=== PATIENT | female | born 1990 | race African-American/Black ===

== ENCOUNTER 2018-12-01 13:26 | Observation (INO) | payer OTHER ==
[2018-12-01] MEDS ORDERED: IPRATROPIUM-ALBUTEROL 3 ML NEB INHALATION STA (13:30)
--- NOTE | 2018-12-01 13:42 | ED ---
General Adult HPI - General Chief complaint: Overdose Stated complaint: Overdose Time Seen by Provider: 12/01/18 13:29 Source: patient, EMS, RN notes reviewed Mode of arrival: EMS Limitations: altered mental status - History of Present Illness Initial comments: Patient is a 28-year-old female presenting to the emergency department by EMS. Patient was checking into [place] for rehab when she was found to be unresponsive. Patient was given 7mg Narcan prior to arrival. Patient remains drowsy however is able to answer questions. Patient admits to snorting heroin. Patient denies any other drug ingestion. No suicidal thoughts. Patient feels somewhat nauseated however no other physical complaints. He should denies any trauma - Related Data Allergies Allergy/AdvReac Type Severity Reaction Status Date / Time Penicillins Allergy Unknown Verified 12/01/18 13:40 Review of Systems ROS Statement: Those systems with pertinent positive or pertinent negative responses have been documented in the HPI. ROS Other: All systems not noted in ROS Statement are negative. Constitutional: Denies: fever Eyes: Denies: eye pain ENT: Denies: ear pain Respiratory: Denies: cough Cardiovascular: Denies: chest pain Endocrine: Denies: fatigue Gastrointestinal: Reports: nausea. Denies: abdominal pain Genitourinary: Denies: dysuria Musculoskeletal: Denies: back pain Skin: Denies: rash Neurological: Denies: weakness Past Medical History Past Medical History: Asthma Additional Past Medical History / Comment(s): lupus History of Any Multi-Drug Resistant Organisms: None Reported Past Surgical History: No Surgical Hx Reported Past Psychological History: No Psychological Hx Reported Smoking Status: Never smoker Past Alcohol Use History: None Reported Past Drug Use History: Opiates General Exam Limitations: no limitations General appearance: other (Drowsy) Head exam: Present: atraumatic Eye exam: Present: normal appearance ENT exam: Present: normal oropharynx Neck exam: Present: normal inspection Respiratory exam: Present: wheezes Cardiovascular Exam: Present: tachycardia GI/Abdominal exam: Present: soft. Absent: tenderness Extremities exam: Present: normal inspection Neurological exam: Present: oriented X3, other (Drowsy. Does follow simple commands and is oriented). Absent: motor sensory deficit Expanded Neurological exam: Present: protecting the airway Patient oriented to: Present: person, place, time Cranial nerves: EOM's Intact: Normal Motor strength exam: RUE: 5, LUE: 5, RLE: 5, LLE: 5 Eye Response: (4) open spontaneously Motor Response: (6) obeys commands Verbal Response: (5) oriented Psychiatric exam: Present: normal affect, normal mood Skin exam: Present: normal color Course Vital Signs 12/01/18 12/01/18 12/01/18 13:29 13:44 13:55 Temperature 97.4 F L Pulse Rate 137 H 140 H 131 H Respiratory 22 Rate Blood Pressure 127/91 O2 Sat by Pulse 91 L Oximetry 12/01/18 14:13 Temperature Pulse Rate Respiratory 36 H Rate Blood Pressure O2 Sat by Pulse Oximetry EKG Findings - EKG Comments: EKG Findings:: Sinus tachycardia 1:30. DC 144. QRS 82. QT 308. QTC 453. Normal axis. Normal QRS. No acute ST change. Medical Decision Making - Medical Decision Making Patient reevaluated. Patient is on Narcan drip. Mental status unchanged. There is concern for possible aspiration and patient will be covered with antibiotics. Blood cultures and lactic acid have been ordered. Patient is not felt to meet sepsis criteria at this time. Vital sign abnormality is felt to be related to opiate withdrawal. Case was discussed in detail with Dr. Saldivar, covering for hospital call, who will admit. - Lab Data Result diagrams: 12/01/18 13:46 12/01/18 13:46 Lab Results 12/01/18 12/01/18 Range/Units 13:46 13:46 WBC 11.9 H (3.8-10.6) k/uL RBC 4.39 (3.80-5.40) m/uL Hgb 11.1 L (11.4-16.0) gm/dL Hct 34.8 (34.0-46.0) % MCV 79.4 L (80.0-100.0) fL MCH 25.4 (25.0-35.0) pg MCHC 32.0 (31.0-37.0) g/dL RDW 14.9 (11.5-15.5) % Plt Count 305 (150-450) k/uL Neutrophils % 80 % Lymphocytes % 14 % Monocytes % 3 % Eosinophils % 2 % Basophils % 0 % Neutrophils # 9.5 H (1.3-7.7) k/uL Lymphocytes # 1.7 (1.0-4.8) k/uL Monocytes # 0.4 (0-1.0) k/uL Eosinophils # 0.2 (0-0.7) k/uL Basophils # 0.0 (0-0.2) k/uL Hypochromasia Slight Sodium 141 (137-145) mmol/L Potassium 5.2 H (3.5-5.1) mmol/L Chloride 111 H (98-107) mmol/L Carbon Dioxide 22 (22-30) mmol/L Anion Gap 8 mmol/L BUN 12 (7-17) mg/dL Creatinine 1.07 H (0.52-1.04) mg/dL Est GFR (CKD-EPI)AfAm 82 (>60 ml/min/1.73 sqM) Est GFR (CKD-EPI)NonAf 71 (>60 ml/min/1.73 sqM) Glucose 233 H (74-99) mg/dL Calcium 8.7 (8.4-10.2) mg/dL Total Bilirubin 0.4 (0.2-1.3) mg/dL AST 28 (14-36) U/L ALT 32 (9-52) U/L Alkaline Phosphatase 61 (38-126) U/L Total Protein 6.8 (6.3-8.2) g/dL Albumin 3.7 (3.5-5.0) g/dL Salicylates <1.0 mg/dL Acetaminophen <10.0 ug/mL Serum Alcohol <10 mg/dL - Radiology Data Radiology results: image reviewed (Chest x-ray shows mild right upper lobe infiltrate) Critical Care Time Critical Care Time: Yes Total Critical Care Time: 33 Disposition Clinical Impression: Drug overdose Disposition: ADMITTED IP TO THIS [facility] Condition: Serious Is patient prescribed a controlled substance at d/c from ED?: No Referrals: None,Stated [Primary Care Provider] - 1-2 days Decision Time: 14:35
[2018-12-01] MEDS: NALOXONE 2 MG in SODIUM CHLORIDE 0.9% 250 ML IV SCH ×3 (14:13→22:46)
[2018-12-01 14:16] LABS: Basophils % (A) 0 %; Eosinophils # (A) 0.2 k/uL (0-0.7); Eosinophils % (A) 2 %; HCT 34.8 % (34.0-46.0); HGB 11.1 gm/dL (11.4-16.0); Hypochromasia Slight; Lymphocytes # (A) 1.7 k/uL (1.0-4.8); Lymphocytes % (A) 14 %; MCH 25.4 pg (25.0-35.0); MCV 79.4 fL (80.0-100.0); Mean Platelet Volume 6.5; Monocytes # (A) 0.4 k/uL (0-1.0); Monocytes % (A) 3 %; Neutrophils # (A) 9.5 k/uL (1.3-7.7); Neutrophils % (A) 80 %; Platelet Count 305 k/uL (150-450); RBC 4.39 m/uL (3.80-5.40); RDW 14.9 % (11.5-15.5); WBC 11.9 k/uL (3.8-10.6)
--- NOTE | 2018-12-01 14:18 | XR ---
EXAMINATION TYPE: XR chest 1V portable DATE OF EXAM: 12/01/2018 COMPARISON: None INDICATION: Dyspnea TECHNIQUE: Single frontal view of the chest is obtained. FINDINGS: The heart size is normal. The pulmonary vasculature is normal. Some mild right upper lobe infiltrate may be present. Correlate for atelectasis or pneumonia. IMPRESSION: 1. Mild right upper lobe infiltrate. Correlate for atelectasis or pneumonia.
[2018-12-01 14:30] LABS: ALT 32 U/L (9-52); AST 28 U/L (14-36); Acetaminophen <10.0 ug/mL; Albumin 3.7 g/dL (3.5-5.0); Alcohol <10 mg/dL; Alkaline Phosphatase 61 U/L (38-126); Anion Gap 8 mmol/L; Blood Urea Nitrogen 12 mg/dL (7-17); Calcium 8.7 mg/dL (8.4-10.2); Carbon Dioxide 22 mmol/L (22-30); Chloride 111 mmol/L (98-107); Glucose 233 mg/dL (74-99); Potassium 5.2 mmol/L (3.5-5.1); Salicylate <1.0 mg/dL; Sodium 141 mmol/L (137-145); Total Bilirubin 0.4 mg/dL (0.2-1.3); Total Protein 6.8 g/dL (6.3-8.2)
[2018-12-01] MEDS ORDERED: LEVOFLOXACIN 750MG-D5W PMX 750 MG in DEXTROSE/WATER 1 150ML.BAG IVPB STA (14:35)
[2018-12-01] MEDS ORDERED: IPRATROPIUM-ALBUTEROL 3 ML NEB INHALATION PRN (14:35)
[2018-12-01] MEDS ORDERED: PNEUMONIA PROTOCOL UTILIZED 1 EACH MISC PO PRN (14:35)
[2018-12-01] MEDS: SODIUM CHLORIDE 0.9% 1,000 ML IV SCH (15:37)
[2018-12-01] MEDS: IPRATROPIUM-ALBUTEROL 3 ML NEB INHALATION SCH ×2 (15:39→20:21)
[2018-12-01] MEDS ORDERED: CLINDAMYCIN 600 MG in DEXTROSE 5% IN WATER 50 ML IVPB SCH ×2 (16:00)
[2018-12-01 16:18] LABS: Glucose,Whole Blood 170 mg/dL (75-99)
[2018-12-01] MEDS ORDERED: diphenhydrAMINE 25 MG CAP PO PRN (16:34)
--- NOTE | 2018-12-01 17:13 | P.CNPUL ---
History of Present Illness Consult date: 12/01/18 Reason for consult: other Chief complaint: Heroin overdose History of present illness: This is a 28-year-old female patient with past medical history of multiple sclerosis, lupus, anxiety, who was brought into the hospital. EMS on 12/01/2018 from [facility]. She was checking in to [facility] for rehab, he was found unresponsive. Opiate overdose was suspected, and patient was given intranasal Narcan as well as IV Narcan, a total of 7 mg prior to arrival to the hospital. Patient started waking up, though was still drowsy on arrival, she was started on Narcan drip. She reportedly admitted snorting heroin in the emergency department. She denied any suicidal thoughts. Chest x-ray was taken and showed mild right upper lobe infiltrate, that could relate to atelectasis or early pneumonia. She was started on clindamycin and Levaquin, white blood cell count was 11.9, hemoglobin was 11.1, sodium was 141, potassium is 5.2, chloride was 111, BUN was 12 creatinine was 1.07, LFTs were within normal limits, salicylate level less than 1, acetaminophen level less than 10, serum alcohol level less than 10. Patient is tachycardic, sinus mechanism with a rate of 130 BPM. She is currently being evaluated in the intensive care unit, she is awake and alert, remains on Narcan drip. She denies snorting heroin. He states someone that was going to the [facility] with her and offered her a pill, told her it was clonazepam, she ingested it. She denies any illegal drug use, she states she was going to the rehab because she was told to wean herself off the Olga was that she was taking for her left ankle injury. Her left ankle injury was sustained in a fall, it is bruised and swollen. It is unclear whether she was seen for this injury. Denies any history of smoking, denies any history of EtOH. She states she is on Neurontin 300 mg twice daily, she takes Ativan 2 mg by mouth twice daily, Haldol 5 mg daily, trazodone 200 mg at bedtime for sleep aid, and Olga 5 mg 3-4 times a day for pain control. Patient lives in [place] , usually goes to [facility] for her care. Upon evaluation she is awake and alert, she is fairly pleasant and cooperative. She is complaining of some nausea, but she is trying to eat some chips. She is tachycardic, and sinus tach with a rate of 130, any discomfort other than the left ankle discomfort. Her pupils are pinpoint, patient is salivating, and she is having clear rhinorrhea out of her nose. Lung sounds are clear. Review of Systems All systems: negative Constitutional: Denies chills, Denies fever Eyes: denies blurred vision, denies pain Ears, nose, mouth and throat: Denies headache, Denies sore throat Cardiovascular: Denies chest pain, Denies shortness of breath Respiratory: Denies cough Gastrointestinal: Denies abdominal pain, Denies diarrhea, Denies nausea, Denies vomiting Genitourinary: Denies dysuria, Denies hematuria Musculoskeletal: Reports frequent falls, Denies myalgias Musculoskeletal: left: ankle pain, ankle swelling Integumentary: Denies pruritus, Denies rash Neurological: Reports balance difficulties, Reports gait dysfunction, Denies numbness, Denies weakness Psychiatric: Denies anxiety, Denies depression Endocrine: Denies fatigue, Denies weight change Past Medical History Past Medical History: Asthma Additional Past Medical History / Comment(s): lupus History of Any Multi-Drug Resistant Organisms: None Reported Past Surgical History: No Surgical Hx Reported Past Psychological History: No Psychological Hx Reported Smoking Status: Never smoker Past Alcohol Use History: None Reported Past Drug Use History: Opiates Medications and Allergies Allergies Allergy/AdvReac Type Severity Reaction Status Date / Time Penicillins Allergy Unknown Verified 12/01/18 13:40 Physical Exam Vitals: Vital Signs Temp Pulse Resp BP Pulse Ox 12/01/18 15:30 114 H 22 132/90 98 12/01/18 15:00 121 H 24 127/64 98 12/01/18 14:30 128 H 30 H 128/20 96 12/01/18 14:13 36 H 12/01/18 14:00 132 H 36 H 127/86 94 L 12/01/18 13:55 131 H 12/01/18 13:44 140 H 12/01/18 13:29 97.4 F L 137 H 22 127/91 91 L Intake and Output 12/01/18 12/01/18 12/01/18 06:59 14:59 22:59 Other: Weight 85.729 kg GENERAL EXAM: Alert, pleasant, 28-year-old obese Russian Russian female, sitting up in bed, alert and oriented 3, pleasant, cooperative comfortable in no apparent distress. HEAD: Normocephalic/atraumatic. EYES: Normal reaction of pupils, equal size. Conjunctiva pink, sclera white. NOSE: Clear with pink turbinates. Clear rhinorrhea noted out of both nostrils THROAT: No erythema or exudates. NECK: No masses, no JVD, no thyroid enlargement, no adenopathy. CHEST: No chest wall deformity. Symmetrical expansion. LUNGS: Equal air entry with no crackles, wheeze, rhonchi or dullness. CVS: Regular rate and rhythm, normal S1 and S2, no gallops, no murmurs, no rubs ABDOMEN: Soft, nontender. No hepatosplenomegaly, normal bowel sounds, no guarding or rigidity. EXTREMITIES: No clubbing, no edema, no cyanosis, 2+ pulses and upper and lower extremities. MUSCULOSKELETAL: Muscle strength and tone normal. Left ankle swelling and bruising SPINE: No scoliosis or deformity SKIN: No rashes CENTRAL NERVOUS SYSTEM: Alert and oriented -3. No focal deficits, tone is normal in all 4 extremities. PSYCHIATRIC: Alert and oriented -3. Appropriate affect. Intact judgment and insight. Results - Laboratory Findings CBC and BMP: 12/01/18 13:46 12/01/18 13:46 Abnormal lab findings: Abnormal Labs 12/01/18 12/01/18 13:46 13:46 WBC 11.9 H Hgb 11.1 L MCV 79.4 L Neutrophils # 9.5 H Potassium 5.2 H Chloride 111 H Creatinine 1.07 H Glucose 233 H - Diagnostic Findings Chest x-ray: report reviewed, image reviewed Additional studies: EKG reviewed Assessment and Plan Plan: Assessment: #1. Acute heroin overdose, drug screen is pending, patient admittedly snorted heroin found unresponsive. Narcan was administered at the scene, and en route to the hospital, patient was started on not can drip with subsequent improvement of mentation #2. Acute hypoxic respiratory failure, and chest x-ray showed mild upper lobe infiltrate, atelectasis suspected, with the possibility of aspiration #3. History of prescription abuse, Olga, and patient was being checked into [facility] facility #4. No history of smoking, no history of alcohol #5. History of multiple sclerosis, and patient verbalizes balance issues and frequent falls #6. Left ankle injury sustained in the fall a few days ago at home #7. Lupus erythematosus #8. Anxiety #9. Insomnia #10. Tachycardia Plan: We'll continue with IV fluids at a rate of 75 ML per hour, patient is now awake and alert, conversing, she denies snorting heroin, she states did take clonazepam given to her by another patient at the rehab facility. We will obtain urine drug screen. Will stop Narcan drip. Patient denies any shortness of breath, no cough or congestion, lung sounds are clear, chest x-ray showed mild right upper lobe infiltrate, likely related to atelectasis, with the possibility of aspiration, patient is covered with a combination of clindamycin and Levaquin. Patient is on nebulized bronchodilators, she is on GI and DVT prophylaxis, will restart her home meds, including Olga for pain control, will obtain the x-ray of the left ankle to rule out fracture. Will obtain repeat chest x-ray in the morning. She remains tachycardic, but not hypotensive, she is maintaining good O2 saturations, currently is on supplemental oxygen. We'll continue to follow I performed a history & physical examination of the patient and discussed their management with my nurse practitioner, Anna Grace. I reviewed the nurse practitioner's note and agree with the documented findings and plan of care. Lung sounds are positive for clear breath sounds. The findings and the impression was discussed with the patient. I attest to the documentation by the nurse practitioner. Time with Patient: Greater than 30
[2018-12-01 17:38] VITALS: BMI 34.5
[2018-12-01] MEDS: HEPARIN SODIUM,PORCINE 5,000 UNIT/ML 1 ML VIAL SQ SCH (17:49)
[2018-12-01] MEDS: predniSONE 20 MG TAB PO SCH (17:50)
[2018-12-01] MEDS: FAMOTIDINE 20 MG TAB PO SCH (17:50)
[2018-12-01] MEDS: LORazepam 1 MG TAB PO PRN (17:50)
[2018-12-01] MEDS: KETOROLAC 30 MG/ML 1 ML VIAL IVP SCH (17:51)
--- NOTE | 2018-12-01 17:57 | P.HPIM ---
History of Present Illness 28-year-old the pleasant female with history of multiple sclerosis lupus and anxiety is admitted with the possibility of opiate overdose(to have drug screen pending at this time. came in the with decreased responsiveness altered mental status which improved with the narcaine IV and Narcan drip. Patient was subsequently admitted to ICU. Presently patient is alert oriented 3 comparing of some pain in the leg area which she has an ankle sprain area patient any fever chills cough. Patient denied any increased weakness and multiple sclerosis patient denied using any IV drugs or heroin , patient says she is going to [facility] because of addiction to prescription opiates. Because of anxiety her friend gave her clonazepam because of which she is confused she says. Patient denied any fever chills, was comparing of cough without any stimulants production chest x-ray suspicious for infiltrate because of which she is believed to have aspiration pneumonia was started on clindamycin and levofloxacin although my clinical suspicion is low in spite of having some leukocytosis. Antibiotics will be discontinued patient is bit tachycardic because of Marcaine and probable opiate withdrawal. Review of Systems REVIEW OF SYSTEMS: CONSTITUTIONAL: No fever, no malaise, no fatigue. HEENT: No recent visual problems or hearing problems. Denied any sore throat. CARDIOVASCULAR: No chest pain, orthopnea, PND, no palpitations, no syncope. PULMONARY: No shortness of breath, no cough, no hemoptysis. GASTROINTESTINAL: No diarrhea, no nausea, no vomiting, no abdominal pain. NEUROLOGICAL: No headaches, no weakness, no numbness. HEMATOLOGICAL: Denies any bleeding or petechiae. GENITOURINARY: Denies any burning micturition, frequency, or urgency. MUSCULOSKELETAL/RHEUMATOLOGICAL: Denies any joint pain, swelling, or any muscle pain. ENDOCRINE: Denies any polyuria or polydipsia. The rest of the 14-point review of systems is negative. Past Medical History Past Medical History: Asthma Additional Past Medical History / Comment(s): lupus, MS History of Any Multi-Drug Resistant Organisms: None Reported Past Surgical History: No Surgical Hx Reported Past Anesthesia/Blood Transfusion Reactions: No Reported Reaction Past Psychological History: No Psychological Hx Reported Smoking Status: Never smoker Past Alcohol Use History: None Reported Past Drug Use History: Opiates - Past Family History Mother Family Medical History: Coronary Artery Disease (CAD) Additional Family Medical History / Comment(s): Alzheimer's (early stages) Medications and Allergies Allergies Allergy/AdvReac Type Severity Reaction Status Date / Time Penicillins Allergy Unknown Verified 12/01/18 13:40 Physical Exam Vitals: Vital Signs Temp Pulse Resp BP Pulse Ox 12/01/18 15:30 114 H 22 132/90 98 12/01/18 15:00 121 H 24 127/64 98 12/01/18 14:30 128 H 30 H 128/20 96 12/01/18 14:13 36 H 12/01/18 14:00 132 H 36 H 127/86 94 L 12/01/18 13:55 131 H 12/01/18 13:44 140 H 12/01/18 13:29 97.4 F L 137 H 22 127/91 91 L Intake and Output 12/01/18 12/01/18 12/01/18 06:59 14:59 22:59 Intake Total 100 Output Total 400 Balance -300 Intake: Intake, IV Titration 100 Amount Levofloxacin 750Mg-D5w 100 Pmx 750 mg In Dextrose/ Water 1 150ml.bag @ 100 mls/hr IVPB Q24H [facility] Rx#: [id number] Output: Urine 400 Other: Weight 85.729 kg PHYSICAL EXAMINATION: GENERAL: The patient is alert and oriented x3, not in any acute distress. Well developed, well nourished. She and is covered up with full sheets and she is complaining of cold HEENT: Pupils are round and equally reacting to light. EOMI. No scleral icterus. No conjunctival pallor. Normocephalic, atraumatic. No pharyngeal erythema. No thyromegaly. CARDIOVASCULAR: S1 and S2 present. No murmurs, rubs, or gallops. PULMONARY: Chest is clear to auscultation, no wheezing or crackles. ABDOMEN: Soft, nontender, nondistended, normoactive bowel sounds. No palpable organomegaly. MUSCULOSKELETAL: No joint swelling or deformity. EXTREMITIES: No cyanosis, clubbing, or pedal edema. NEUROLOGICAL: Gross neurological examination did not reveal any focal deficits. SKIN: No rashes. Results CBC & Chem 7: 12/01/18 13:46 12/01/18 13:46 Labs: Abnormal Lab Results - Last 24 Hours (Table) 12/01/18 12/01/18 12/01/18 Range/Units 13:46 13:46 16:17 WBC 11.9 H (3.8-10.6) k/uL Hgb 11.1 L (11.4-16.0) gm/dL MCV 79.4 L (80.0-100.0) fL Neutrophils # 9.5 H (1.3-7.7) k/uL Potassium 5.2 H (3.5-5.1) mmol/L Chloride 111 H (98-107) mmol/L Creatinine 1.07 H (0.52-1.04) mg/dL Glucose 233 H (74-99) mg/dL POC Glucose (mg/dL) 170 H (75-99) mg/dL Thrombosis Risk Factor Assmnt - Choose All That Apply Any of the Below Risk Factors Present?: Yes Each Factor Represents 1 point: Obesity (BMI >25) Other Risk Factors: No Thrombosis Risk Factor Assessment Total Risk Factor Score: 1 Thrombosis Risk Factor Assessment Level: Low Risk Assessment and Plan Plan: -Possible opiate overdose: Patient is presently awake alert oriented 3 will monitor her in ICU patient is probably having minimal withdrawal from opiates patient is bit tachycardic will treat symptomatically with a beta rylie. -History of multiple sclerosis does not appear to have any exacerbation at this time history of SLE -Anxiety disorder -Tachycardia due to probable opiate withdrawals -Low suspicion for aspiration pneumonia antibiotics will be discontinued - leukocytosis reactive in no clear evidence of any sepsis at this time -Elevated blood glucose will obtain hemoglobin A1c -Mildly elevated potassium etiology is unknown low potassium diet
[2018-12-01 18:04] LABS: Glucose,Whole Blood 314 mg/dL (75-99)
[2018-12-01] MEDS: INSULIN ASPART (NovoLOG) 100 UNIT/ML VIAL SQ SCH ×2 (18:14→20:43)
[2018-12-01] MEDS: ONDANSETRON 4 MG/2 ML VIAL IVP PRN (19:13)
--- NOTE | 2018-12-01 19:28 | XR ---
EXAMINATION TYPE: XR ankle limited LT DATE OF EXAM: 12/01/2018 COMPARISON: NONE HISTORY: Pain and swelling TECHNIQUE: 2 views FINDINGS: There is soft tissue swelling over the lateral malleolus. Ankle mortise is anatomic. I see no fracture. There is a small plantar calcaneal spur. IMPRESSION: Soft tissue swelling. No fracture seen. Normal joint spaces.
[2018-12-01 20:05] LABS: Glucose,Whole Blood 180 mg/dL (75-99)
[2018-12-01] MEDS: HYDROcodone/APAP 5-325MG 1 EACH TAB PO PRN (20:38)
[2018-12-01] MEDS: METOPROLOL TARTRATE 25 MG TAB PO SCH (20:41)
[2018-12-01] MEDS: diphenhydrAMINE 50 MG/ML 1 ML VIAL IVP PRN (20:42)
[2018-12-01] MEDS: HALOPERIDOL 5 MG TAB PO SCH (20:43)
[2018-12-01] MEDS ORDERED: traZODone HCL 100 MG TAB PO SCH (21:00)
[2018-12-02] MEDS: NALOXONE 2 MG in SODIUM CHLORIDE 0.9% 250 ML IV SCH ×4 (00:06→10:29)
[2018-12-02] MEDS: KETOROLAC 30 MG/ML 1 ML VIAL IVP SCH ×3 (00:45→12:29)
[2018-12-02] MEDS: SODIUM CHLORIDE 0.9% 1,000 ML IV SCH ×2 (00:47→13:28)
[2018-12-02] MEDS: HEPARIN SODIUM,PORCINE 5,000 UNIT/ML 1 ML VIAL SQ SCH ×3 (00:47→13:28)
[2018-12-02] MEDS: HYDROcodone/APAP 5-325MG 1 EACH TAB PO PRN ×2 (01:33→08:21)
[2018-12-02] MEDS: ONDANSETRON 4 MG/2 ML VIAL IVP PRN (01:34)
[2018-12-02] MEDS: diphenhydrAMINE 50 MG/ML 1 ML VIAL IVP PRN ×2 (02:13→09:56)
[2018-12-02] MEDS: LORazepam 1 MG TAB PO PRN (06:11)
--- NOTE | 2018-12-02 06:38 | XR ---
EXAMINATION TYPE: XR chest 1V portable DATE OF EXAM: 12/02/2018 CLINICAL HISTORY: Difficulty breathing and abnormal x-ray progress study. TECHNIQUE: Single AP portable semiupright view of the chest is obtained. COMPARISON: Chest x-ray from one day earlier. FINDINGS: Pain right upper lung opacity remains present. There is new right basilar opacity partiall y silhouetting right hemidiaphragm. Increased central markings left lung is again seen. Cardiac silho uette size is upper limits of normal slightly more prominent on current study. No large pleural effus ion or pneumothorax is seen. Osseous structures are intact. IMPRESSION: Persistent right apical acute infiltrate and/or atelectasis. Central left hilar mild maria dolores a and/or infiltrate redemonstrated. New patchy right basilar acute infiltrate and/or atelectasis note d.
[2018-12-02 06:58] LABS: Glucose,Whole Blood 113 mg/dL (75-99)
[2018-12-02] MEDS: INSULIN ASPART (NovoLOG) 100 UNIT/ML VIAL SQ SCH ×2 (07:53→12:05)
[2018-12-02] MEDS: IPRATROPIUM-ALBUTEROL 3 ML NEB INHALATION SCH ×2 (07:55→11:20)
[2018-12-02] MEDS: METOPROLOL TARTRATE 25 MG TAB PO SCH (08:22)
[2018-12-02] MEDS: predniSONE 20 MG TAB PO SCH (08:22)
[2018-12-02] MEDS: FAMOTIDINE 20 MG TAB PO SCH (08:23)
[2018-12-02] MEDS: HALOPERIDOL 5 MG TAB PO SCH (09:56)
[2018-12-02 10:20] VITALS: RESP 16
[2018-12-02 11:24] LABS: Appearance,Urine Cloudy (Clear); Bacteria,Urine Rare /hpf; Bilirubin,Urine Negative (Negative); Blood,Urine Negative (Negative); Color,Urine Yellow; Glucose,Urine (UA) Negative (Negative); Ketones,Urine Negative (Negative); Leukocyte Esterase,Urine Trace (Negative); Mucus,Urine Few /hpf; Nitrite,Urine Negative (Negative); PH, Urine 5.5 (5.0-8.0); Protein,Urine Trace (Negative); RBC,Urine 3 /hpf (0-5); Specific Gravity,Urine 1.023 (1.001-1.035); Squamous Epithelial Cell,Urine 26 /hpf (0-4); Urobilinogen,Urine <2.0 mg/dL (<2.0); WBC,Urine 8 /hpf (0-5)
[2018-12-02 11:45] LABS: Cocaine Screen,Urine Not Detected (NotDetected); Opiate Screen,Urine Detected (NotDetected); Phencyclidine Screen,Urine Not Detected (NotDetected); Urn Cannabinoid Scrn Not Detected (NotDetected)
[2018-12-02 11:46] LABS: Amphetamine Screen,Urine Not Detected (NotDetected); Barbiturate Screen,Urine Not Detected (NotDetected); Benzodiazepines Screen,Urine Detected (NotDetected); Methadone Screen, Urine Detected (NotDetected); Oxycodone Screen, Urine Not Detected (NotDetected); Tricyclic Antidepressant,Urine Not Detected (NotDetected)
[2018-12-02 11:49] LABS: Glucose,Whole Blood 115 mg/dL (75-99)
[2018-12-02] MEDS ORDERED: HYDROcodone/APAP 10-325MG 1 EACH TAB PO PRN (12:04)
[2018-12-02] MEDS ORDERED: HYDROcodone/APAP 5-325MG 1 EACH TAB PO STA (12:05)
[2018-12-02 13:19] VITALS: BP 115/78; PULSE 102; TEMP 97
--- NOTE | 2018-12-02 13:51 | P.PN ---
Subjective Progress Note Date: 12/02/18 On 12/02/2018, the patient is being seen for a follow-up. Very manipulative. Very uncooperative. Alert and awake. No altered mentation. Requesting drugs including IV Benadryl and IV narcotics. No agitation. No confusion. No altered mentation. Unable to collect a urine drug screen as the patient has been healthcare administration intern positive and providing the required samples. Her home medications and resume. The plan is for this patient to go back to [facility]. Objective - Vital Signs Vital signs: Vital Signs Temp 97 F L 12/02/18 12:00 Pulse 102 H 12/02/18 12:00 Resp 16 12/02/18 12:00 BP 115/78 12/02/18 12:00 Pulse Ox 96 12/02/18 13:29 Intake & Output 12/01/18 12/02/18 12/02/18 18:59 06:59 18:59 Intake Total 300 1005 Output Total 800 150 Balance -500 1005 -150 Weight 85.729 kg 72 kg Intake: IV 450 Sodium Chloride 0.9% 1, 450 000 ml @ 75 mls/hr IV . [id number] [facility] Rx#:[id number] Intake, IV Titration 300 75 Amount Clindamycin 600 mg In 50 Dextrose 5% in Water 50 ml @ 54 mls/hr IVPB Q8HR [facility] Rx#:[id number] Levofloxacin 750Mg-D5w 100 Pmx 750 mg In Dextrose/ Water 1 150ml.bag @ 100 mls/hr IVPB Q24H [facility] Rx#: [id number] Naloxone 2 mg In Sodium 150 75 Chloride 0.9% 250 ml @ 0. 6 MG/HR 75 mls/hr IV . Q3H20M [facility] Rx#:[id number] Oral 480 Output: Urine 800 150 Other: # Voids 1 1 # Bowel Movements 1 1 - Exam The patient appeared well nourished and normally developed. Vital signs as documented. Head exam is unremarkable. No scleral icterus or corneal arcus noted. Neck is without jugular venous distension, thyromegaly, or carotid bruits. Carotid upstrokes are brisk bilaterally. Lungs are clear to auscultation and percussion. Cardiac exam reveals the PMI to be normally sized and situated. Rhythm is regular. First and second heart sounds normal. No murmurs, rubs or gallops. Abdominal exam reveals normal bowel sounds, no masses , no organomegaly and no aortic enlargement. Extremities are nonedematous and both femoral and pedal pulses are normal. Neurologically awake and alert and is no focal neurological deficit - Labs CBC & Chem 7: 12/01/18 13:46 12/01/18 13:46 Labs: Abnormal Lab Results - Last 24 Hours (Table) 12/01/18 12/01/18 12/01/18 Range/Units 13:46 13:46 16:17 WBC 11.9 H (3.8-10.6) k/uL Hgb 11.1 L (11.4-16.0) gm/dL MCV 79.4 L (80.0-100.0) fL Neutrophils # 9.5 H (1.3-7.7) k/uL Potassium 5.2 H (3.5-5.1) mmol/L Chloride 111 H (98-107) mmol/L Creatinine 1.07 H (0.52-1.04) mg/dL Glucose 233 H (74-99) mg/dL POC Glucose (mg/dL) 170 H (75-99) mg/dL Urine Appearance (Clear) Urine Protein (Negative) Ur Leukocyte Esterase (Negative) Urine WBC (0-5) /hpf Ur Squamous Epith Cells (0-4) /hpf Urine Bacteria (None) /hpf Urine Mucus (None) /hpf Urine Opiates Screen (NotDetected) Urine Methadone Screen (NotDetected) U Benzodiazepines Scrn (NotDetected) 12/01/18 12/01/18 12/02/18 Range/Units 18:02 20:04 06:56 WBC (3.8-10.6) k/uL Hgb (11.4-16.0) gm/dL MCV (80.0-100.0) fL Neutrophils # (1.3-7.7) k/uL Potassium (3.5-5.1) mmol/L Chloride (98-107) mmol/L Creatinine (0.52-1.04) mg/dL Glucose (74-99) mg/dL POC Glucose (mg/dL) 314 H 180 H 113 H (75-99) mg/dL Urine Appearance (Clear) Urine Protein (Negative) Ur Leukocyte Esterase (Negative) Urine WBC (0-5) /hpf Ur Squamous Epith Cells (0-4) /hpf Urine Bacteria (None) /hpf Urine Mucus (None) /hpf Urine Opiates Screen (NotDetected) Urine Methadone Screen (NotDetected) U Benzodiazepines Scrn (NotDetected) 12/02/18 12/02/18 Range/Units 10:55 11:48 WBC (3.8-10.6) k/uL Hgb (11.4-16.0) gm/dL MCV (80.0-100.0) fL Neutrophils # (1.3-7.7) k/uL Potassium (3.5-5.1) mmol/L Chloride (98-107) mmol/L Creatinine (0.52-1.04) mg/dL Glucose (74-99) mg/dL POC Glucose (mg/dL) 115 H (75-99) mg/dL Urine Appearance Cloudy H (Clear) Urine Protein Trace H (Negative) Ur Leukocyte Esterase Trace H (Negative) Urine WBC 8 H (0-5) /hpf Ur Squamous Epith Cells 26 H (0-4) /hpf Urine Bacteria Rare H (None) /hpf Urine Mucus Few H (None) /hpf Urine Opiates Screen Detected H (NotDetected) Urine Methadone Screen Detected H (NotDetected) U Benzodiazepines Scrn Detected H (NotDetected) Assessment and Plan Plan: #1. Acute heroin overdose, treated with Narcan drip. Fully recovered from this overdose although we haven't confirmed the finding of the patient was not able to give us a urine drug screen. It is likely the patient could've taken excessive methadone. She was given pills by a friend which made her quite unconscious and I think that she could've overdosed on methadone. #2. Acute hypoxic respiratory failure, rheumatic the patient is currently on room air. The follow-up chest x-ray shows some persistent right apical infiltrate/atelectasis. New patchy right basilar infiltrate is also noted. Consider aspiration. #3. History of prescription abuse, [place], and patient was being checked into [facility] facility #4. No history of smoking, no history of alcohol #5. History of multiple sclerosis, and patient verbalizes balance issues and frequent falls #6. Left ankle injury sustained in the fall a few days ago at home #7. Lupus erythematosus #8. Anxiety #9. Insomnia Plan The patient can go back to [facility]. Resume home medications. Add Augmentin for any possible aspiration pneumonia. Therefore discharged from the pulmonary and critical care standpoint.
[2018-12-02] MEDS ORDERED: LEVOFLOXACIN 750MG-D5W PMX 750 MG in DEXTROSE/WATER 1 150ML.BAG IVPB SCH (16:00)
--- NOTE | 2018-12-02 16:29 | P.DS ---
Providers Date of admission: 12/01/18 14:35 Attending physician: Chloe Saldivar Consults: 12/01/18 15:14 Consult Physician Urgent Consulting Provider: Markie Clay Consult Reason/Comments: Critical care Do you want consulting provider notified?: Yes Primary care physician: Stated None Hospital Course: 28-year-old female admitted for opiate overdose patient is more awake feeling better although significant tachycardia was documented on exam patient the does not appear to be significantly tachycardic is clinically doing well will be discharged to [facility] today. There is probably minimal aspiration which his chemical and may have some chemical pneumonitis but do not believe patient will require antibiotics at this time. PHYSICAL EXAMINATION: GENERAL: The patient is alert and oriented x3, not in any acute distress. Well developed, well nourished. HEENT: Pupils are round and equally reacting to light. EOMI. No scleral icterus. No conjunctival pallor. Normocephalic, atraumatic. No pharyngeal erythema. No thyromegaly. CARDIOVASCULAR: S1 and S2 present. No murmurs, rubs, or gallops. PULMONARY: Chest is clear to auscultation, no wheezing or crackles. ABDOMEN: Soft, nontender, nondistended, normoactive bowel sounds. No palpable organomegaly. MUSCULOSKELETAL: No joint swelling or deformity. EXTREMITIES: No cyanosis, clubbing, or pedal edema. NEUROLOGICAL: Gross neurological examination did not reveal any focal deficits. SKIN: No rashes. The rest of the chronic medical problems has physician course please refer to my dictation of H&P from yesterday Patient Condition at Discharge: Serious Plan - Discharge Summary Discharge Rx Participant: No New Discharge Prescriptions: No Action No Known Home Medications Discharge Medication List No Known Home Medications 12/01/18 [History] Follow up Appointment(s)/Referral(s): None,Stated [Primary Care Provider] - 1-2 days Patient Instructions/Handouts: Opioid Withdrawal (DC), Safe Use of Opioids (DC) Discharge Disposition: OTHER INSTITUTION NOT DEFINED
== END 2018-12-02 14:36 ==
LOC: EC 13:26 → INTOOBSV 14:35 → 2SICU 14:35 → UNDODISIN 12-02 14:36
PROVIDERS: ADMIT Internal Medicine; ATTEND Internal Medicine
DX: T40.1X1A Poisoning by heroin, accidental (unintentional), initial encounter (principal); T40.2X1A Poisoning by other opioids, accidental (unintentional), initial encounter; J96.01 Acute respiratory failure with hypoxia; R91.8 Other nonspecific abnormal finding of lung field; J45.909 Unspecified asthma, uncomplicated; M32.9 Systemic lupus erythematosus, unspecified; F41.9 Anxiety disorder, unspecified; G35 Multiple sclerosis; S99.912A Unspecified injury of left ankle, initial encounter; G47.00 Insomnia, unspecified; R00.0 Tachycardia, unspecified; E87.5 Hyperkalemia; R73.9 Hyperglycemia, unspecified; R29.6 Repeated falls; E66.9 Obesity, unspecified; Z68.29 Body mass index [BMI] 29.0-29.9, adult; Z82.0 Family history of epilepsy and other diseases of the nervous system; Z82.49 Family history of ischemic heart disease and other diseases of the circulatory system; Z88.0 Allergy status to penicillin; W19.XXXA Unspecified fall, initial encounter; Y92.009 Unspecified place in unspecified non-institutional (private) residence as the place of occurrence of the external cause
CPT/HCPCS: 96376; 96366 ×3; 96372 ×2; 96375; 96368; 96365; 99291; 36415; 94640 ×2; 80053; 83605; 85025; 81001; 81025; 87040; 80306; 83520 ×2; 87070; 87205; 83036; 73600; 71045 ×2; G0378 ×2; G0480; J1200 ×2; J1644 ×2; J2310; J2405 ×2; J1885 ×2; J1956; J7512 ×2; 80320; 93005